=== PATIENT | male | born 1955 | race Caucasian/White ===

== ENCOUNTER 2017-03-19 05:35 | Emergency (ER) | payer MEDICAID ==
[~2017-03-19] VITALS: Ht 188 cm; Wt 96.0 kg
[2017-03-19 05:50] VITALS: BP 121/76; PULSE 82; RESP 18; TEMP 98.9
[2017-03-19] MEDS ORDERED: ACETAMINOPHEN 325 MG TAB PO ONE (06:15)
--- NOTE | 2017-03-19 06:40 | PD ---
HPI Chief Complaint: Abdominal Pain Time Seen by Provider: 05:43 Travel History International Travel<30 days: No Contact w/Intl Traveler<30days: No Traveled to known affect area: No History of Present Illness HPI The patient is a 61 year old male who presents to the [facility] emergency department with a history of reportedly having a right inguinal hernia that became increasingly painful over the last 4 days. The patient reports that this sensation as a burning sensation. He reports that this evening when he was placed under arrest for battery, he had nausea and vomiting 2 and also moved his bowels once. He reports that the pain was increasing, therefore he was brought to the emergency department for evaluation and treatment after being taken to the police station. The patient reports that he can reduce the hernia. The patient reports that he has an appointment with a surgeon to have surgical correction of the hernia done in a few days. He cannot recall the name of the surgeon. On review of systems otherwise, the patient denies any recent fevers, cough, congestion, neck pain, chest pain, shortness of breath, urinary symptoms, or neurologic symptoms. [facility] Past Medical History Narrative Medical The patient's past medical history is significant for insomnia and a right inguinal hernia that is been present since 2016. Diminished Hearing: No Inguinal Hernia: Yes Past Surgical History Surgical History: No Previous Surgery Social History Alcohol Use: No Tobacco Use: Yes (1 PPD) Substance Use: No Allergies-Medications (Allergen,Severity, Reaction): Coded Allergies: No Known Allergies (Verified , 03/19/17) Reported Meds & Prescriptions Reported Meds & Active Scripts Active Active Prescriptions or Reported Medications Unobtainable Review of Systems Except as stated in HPI: all other systems reviewed are Neg General / Constitutional: No: Fever Eyes: No: Visual changes HENT: No: Headaches Cardiovascular: No: Chest Pain or Discomfort Respiratory: No: Shortness of Breath Gastrointestinal: Positive: Nausea, Vomiting, Abdominal Pain, No: Diarrhea, Hematemesis, Hematochezia, Changes in Bowel Habits, Indigestion, Loss of Appetite Genitourinary: No: Dysuria Musculoskeletal: No: Pain Skin: No Rash Neurologic: No: Weakness Psychiatric: No: Depression Endocrine: No: Polydipsia Hematologic/Lymphatic: No: Easy Bruising Physical Exam Narrative General: The patient is a well-developed well-nourished male in no acute distress. Head and Neck exam: Head is normocephalic atraumatic. Eyes: Pupils are equal in size. The patient is legally blind. Nose: Midline septum with pink mucous membranes Mouth: Dentition unremarkable. Moist mucus membranes. Posterior oropharynx is not erythematous. No tonsillar hypertrophy. Uvula midline. Airway patent. Neck: No palpable lymphadenopathy. No nuchal rigidity. No thyromegaly. Cardiovascular: Regular rate and rhythm without murmurs, gallops, or rubs. Lungs: Clear to auscultation bilaterally. No wheezes, rhonchi, or rales. Abdomen: Soft, without tenderness to palpation in all 4 quadrants of the abdomen. No guarding, rebound, or rigidity. Normal bowel sounds are audible. No tenderness on palpation of McBurney's point. Negative Bolivar sign.. Extremities: No clubbing, cyanosis, or edema. 2+ pulses in all 4 extremities. No calf tenderness on palpation Back: No costovertebral angle tenderness to palpation. Neurologic Exam: Grossly nonfocal. Skin Exam: No rash noted. Intact skin that is warm and dry. Genital exam: The patient is a circled male. No genital lesions or rash noted. No scrotal swelling on examination. No palpable testicle masses or tenderness on palpation. The patient has a palpable, easily reducible, right inguinal hernia. Data Data Last Documented VS Vital Signs Date Time Temp Pulse Resp B/P (MAP) Pulse Ox O2 Delivery O2 Flow Rate FiO2 03/19/17 05:50 98.9 82 18 121/76 (91) Orders Orders Acetaminophen (Tylenol) (03/19/17 06:15) [facility] Medical Decision Making Medical Screen Exam Complete: Yes Emergency Medical Condition: Yes Medical Record Reviewed: Yes Differential Diagnosis Incarcerated hernia, versus reducible hernia Narrative Course During the course of the patients emergency department visit, the patients history, examination, and differential diagnosis were reviewed with the patient. The patient had on examination a reducible inguinal hernia noted. The patient was given Tylenol for pain. The patient reports that he already has a follow-up appointment scheduled for surgical repair as an outpatient with a local surgeon, however he cannot recall the name of the surgeon. The patient will be discharged into police custody as he is currently under arrest and has no acute evidence of incarceration. The patient is resting comfortably and feels better, is alert and in no distress. The patients results and examination findings were discussed with the patient. The repeat examination is unremarkable and benign. The history, exam, diagnostic testing, and current condition do not suggest any significant pathology to warrant further testing, continued ED treatment, admission, or surgical evaluation at this point. The vital signs have been stable. The patient does not have uncontrollable pain, intractable vomiting, or other significant symptoms. The patient's condition is stable and appropriate for discharge. The patient will pursue further outpatient evaluation with a primary care physician or other designated or consulting physician as indicated in the discharge instructions. The patient expressed understanding and was agreeable with this plan. Diagnosis Primary Impression: Right inguinal hernia Referrals: General Surgeon 2 days Patient Instructions: General Instructions, Inguinal Hernia (ED) Scripts Unable to Obtain Active Prescriptions or Reported Meds Disposition: 01 DISCHARGE HOME Condition: Stable Viv Ku MD Mar 19, 2017 06:40
[2017-03-19 07:24] VITALS: RESP 17
== END 2017-03-19 07:37 | disposition home or self-care (01) ==
LOC: NEPE 05:35
DX: K40.90 Unilateral inguinal hernia, without obstruction or gangrene, not specified as recurrent (principal); R11.2 Nausea with vomiting, unspecified; Z72.0 Tobacco use
CPT/HCPCS: 99283